=== PATIENT | male | born 1995 | race Caucasian/White ===

== ENCOUNTER 2017-03-30 19:12 | Emergency (ER) | payer OTHER ==
[2017-03-30] MEDS ORDERED: hydrOXYzine 25 MG TAB ONE (19:28)
[2017-03-30] MEDS ORDERED: predniSONE 20 MG TAB ONE (19:28)
[2017-03-30] MEDS ORDERED: Adacel (T-DAP) 0.5 ML VIAL ONE (19:33)
== END 2017-03-30 19:41 | disposition home or self-care (01) ==
LOC: BURERS 19:12
DX: L50.0 Allergic urticaria (principal)
CPT/HCPCS: 90471; 90715; J7506